=== PATIENT | male | born 2000 | race African-American/Black ===

== ENCOUNTER 2018-03-18 09:23 | Emergency (ER) | payer OTHER ==
[2018-03-18] MEDS: DEXAMETHASONE 4 MG TABLET PO (10:16)
== END 2018-03-18 10:22 | disposition home or self-care (01) ==
LOC: ER 09:23
DX: J02.9 Acute pharyngitis, unspecified (principal); J45.909 Unspecified asthma, uncomplicated
CPT/HCPCS: 99283; J8540

== ENCOUNTER 2018-05-01 11:11 | Emergency (ER) | payer OTHER | END 2018-05-01 12:10 | disposition home or self-care (01) | LOC: ER 11:11 | DX: J02.9 Acute pharyngitis, unspecified (principal); J45.909 Unspecified asthma, uncomplicated; Z88.8 Allergy status to other drugs, medicaments and biological substances | CPT/HCPCS: 99283 ==

== ENCOUNTER 2018-05-16 06:15 | Emergency (ER) | payer OTHER ==
[2018-05-16] MEDS: LIDO:MAALOX 1:1 20 ML SINGLE DOSE. PO (07:18)
[2018-05-16 07:19] LABS: ADD MAN DIFF? NO
[2018-05-16] MEDS: FAMOTIDINE 20 MG/2 ML VIAL IVP (07:19)
[2018-05-16 07:22] LABS: BASO % 0 % (0-3); EOS # 0.2 x10^3/uL (0.0-0.7); EOS % 2 % (0-3); HEMATOCRIT 49.7 % (39.0-53.0); HEMOGLOBIN 17.3 g/dL (13.0-17.5); LYMPH # 3.1 x10^3/uL (1.0-4.8); LYMPH % 29 % (24-48); MEAN CORPUSCULAR HEMOGLOBIN 33 pg (25-35); MEAN CORPUSCULAR HGB CONC 35 g/dL (31-37); MEAN CORPUSCULAR VOLUME 94 fL (79-100); MONO # 0.5 x10^3/uL (0.0-1.1); MONO % 5 % (0-9); NEUT # 6.8 x10^3uL (1.8-7.7); NEUT % 64 % (31-73); PLATELET COUNT 154 x10^3/uL (140-400); RED CELL DISTRIBUTION WIDTH 13.4 % (11.5-14.5); WHITE BLOOD COUNT 10.6 x10^3/uL (4.0-11.0)
[2018-05-16 07:39] LABS: ANION GAP 4 (6-14); BLOOD UREA NITROGEN 16 mg/dL (8-26); BUN/CREATININE RATIO 16 (6-20); CALCIUM 9.1 mg/dL (8.5-10.1); CARBON DIOXIDE 30 mmol/L (21-32); CHLORIDE 104 mmol/L (98-107); GFR 116.5; GLUCOSE 83 mg/dL (70-99); POTASSIUM 3.8 mmol/L (3.5-5.1); SODIUM 138 mmol/L (136-145)
[2018-05-16 07:45] LABS: ALBUMIN 3.9 g/dL (3.4-5.0); ALK PHOS 67 U/L (46-116); ALT (SGPT) 16 U/L (16-63); AST (SGOT) 22 U/L (15-37); LIPASE 109 U/L (73-393); TOTAL BILIRUBIN 0.3 mg/dL (0.2-1.0)
== END 2018-05-16 08:37 | disposition home or self-care (01) ==
LOC: ER 06:15
DX: R10.13 Epigastric pain (principal); R07.89 Other chest pain; Z88.1 Allergy status to other antibiotic agents
CPT/HCPCS: 36415; 71046; 80053; 83690; 85025; 93005; 96374; 99285-25; S0028

== ENCOUNTER 2018-09-23 12:31 | Emergency (ER) | payer SELFPAY ==
[~2018-09-23] VITALS: Ht 172.7 cm; Wt 63.5 kg
[~2018-09-23 12:31] MED LIST: AMOX1TAB61 PO; AZIT250T6 PO; CETI10TA22 PO; FAMO-63 PO; FLUT9.9S NS; IBUP-1060 PO; NAPR-683 PO; PRED50TA PO; PROAIR HFA8.5 GM INH
[2018-09-23 12:53] VITALS: BP 157/61
[2018-09-23] MEDS ORDERED: AZITHROMYCIN 250 MG TABLET. PO ONE (13:15)
[2018-09-23 13:30] LABS: BILIRUBIN,URINE NEGATIVE (NEG); CLARITY,URINE CLEAR; COLOR,URINE YELLOW; NITRITE,URINE NEGATIVE (NEG); PROTEIN,URINE NEGATIVE (NEG-TRACE)
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
[2018-09-23 13:36] LABS: BACTERIA,URINE 0 /HPF (0-FEW); RBC,URINE 0 /HPF (0-2); SQUAMOUS EPITHELIAL CELL,UR FEW /LPF; WBC,URINE 0 /HPF (0-4)
== END 2018-09-23 13:57 | disposition home or self-care (01) ==
LOC: ER 12:31
DX: A64 Unspecified sexually transmitted disease (principal); N36.9 Urethral disorder, unspecified; Z88.1 Allergy status to other antibiotic agents
CPT/HCPCS: 81001; 87491; 87591; 99283; Q0144

== ENCOUNTER 2018-10-26 08:52 | Emergency (ER) | payer SELFPAY ==
[~2018-10-26] VITALS: Ht 170.2 cm; Wt 59.0 kg
[~2018-10-26 08:52] MED LIST changes: +ALBU2.5V8 INH; -PROAIR HFA8.5 GM INH
[2018-10-26 09:09] VITALS: BP 123/73
[2018-10-26] MEDS ORDERED: PROPARACAINE/FLUORESCEIN 0.5 ML OPHTH DROPS. OD ONE (09:45)
[2018-10-26] MEDS ORDERED: TETRACAINE 0.5% OPHTH SOLUTION 4ML BOTTLE. OD ONE (09:45)
[2018-10-26] MEDS ORDERED: ERYT1OIN6 OD (11:02)
--- NOTE | 2018-10-26 11:02 | PHYS DOC ---
Past Medical History Past Medical History: No Pertinent History Additional Past Medical Histor: "asthma-like sx" seasonal allergies Past Surgical History: No Surgical History Alcohol Use: Rarely Drug Use: None Adult General Chief Complaint Chief Complaint: EYE PROBLEMS HPI HPI Patient is a 18 year old [f__sex] who presents with [] Review of Systems Review of Systems Constitutional: Denies fever or chills [] Eyes: Denies change in visual acuity, redness, or eye pain [] HENT: Denies nasal congestion or sore throat [] Respiratory: Denies cough or shortness of breath [] Cardiovascular: No additional information not addressed in HPI [] GI: Denies abdominal pain, nausea, vomiting, bloody stools or diarrhea [] : Denies dysuria or hematuria [] Musculoskeletal: Denies back pain or joint pain [] Integument: Denies rash or skin lesions [] Neurologic: Denies headache, focal weakness or sensory changes [] Endocrine: Denies polyuria or polydipsia [] All other systems were reviewed and found to be within normal limits, except as documented in this note. Current Medications Current Medications Current Medications Medications (Trade) Dose Ordered Sig/Estefania Start Time Stop Time Status Last Admin Dose Admin Proparacaine HCl/ Fluorescein Sodium (Flucaine Eye Drops) 1 drop 1X ONCE 10/26/18 09:45 10/26/18 09:48 DC 10/26/18 09:45 1 DROP Tetracaine HCl (Tetracaine) 1 drop 1X ONCE 10/26/18 09:45 10/26/18 09:48 DC 10/26/18 09:45 1 DROP Allergies Allergies Allergies Coded Allergies Type Severity Reaction Last Updated Verified ceftriaxone Allergy Mild rash 03/18/18 Yes Physical Exam Physical Exam Constitutional: Well developed, well nourished, no acute distress, non-toxic appearance. [] HENT: Normocephalic, atraumatic, bilateral external ears normal, oropharynx moist, no oral exudates, nose normal. [] Eyes: PERRLA, EOMI, conjunctiva normal, no discharge. [] Neck: Normal range of motion, no tenderness, supple, no stridor. [] Cardiovascular:Heart rate regular rhythm, no murmur [] Lungs & Thorax: Bilateral breath sounds clear to auscultation [] Abdomen: Bowel sounds normal, soft, no tenderness, no masses, no pulsatile masses. [] Skin: Warm, dry, no erythema, no rash. [] Back: No tenderness, no CVA tenderness. [] Extremities: No tenderness, no cyanosis, no clubbing, ROM intact, no edema. [] Neurologic: Alert and oriented X 3, normal motor function, normal sensory function, no focal deficits noted. [] Psychologic: Affect normal, judgement normal, mood normal. [] Current Patient Data Vital Signs Vital Signs Date Time Temp Pulse Resp B/P (MAP) Pulse Ox O2 Delivery O2 Flow Rate FiO2 10/26/18 09:09 98.8 79 18 123/73 (90) 97 Room Air 98.8 EKG EKG [] Radiology/Procedures Radiology/Procedures []Using tetracaine and fluroscein the patient's eye was examined under Wood's lamp and an area of uptake was not noted. Patient's ocular symptoms have stabilized while they have been evaluated in the department and are appropriate for outpatient work up. No evidence of ruptured globe, retinal detachment, acute angle closure glaucoma , or deep space infection. Course & Med Decision Making Course & Med Decision Making Pertinent Labs and Imaging studies reviewed. (See chart for details) [] Dragon Disclaimer Dragon Disclaimer This electronic medical record was generated, in whole or in part, using a voice recognition dictation system. Departure Departure Impression: Primary Impression: Inflammation of conjunctiva Additional Impression: Conjunctivitis Disposition: 01 HOME, SELF-CARE Condition: STABLE Referrals: Chelsey SONG MD (PCP) Patient Instructions: Conjunctivitis (Viral and Bacterial) Additional Instructions: Fill the prescription(s) and use as directed. Apply warm, moist washcloths to eyes needed for comfort. Recommend use of baby shampoo to wash eyelids. Follow- up with her primary care doctor in 1-2 days. Return to the emergency room if your symptoms worsen. Scripts Erythromycin Base (Erythromycin) 1 Gm Oint...g. 0.25 INCH OD QID for 5 Days, #1 TUBE 0 Refills Prov: HAVEN CHAPIN APRN 10/26/18 Problem Qualifiers Primary Impression: Inflammation of conjunctiva Conjunctivitis type: acute Acute conjunctivitis type: unspecified Laterality: right Qualified Codes: H10.31 - Unspecified acute conjunctivitis , right eye Additional Impression: Conjunctivitis Conjunctivitis type: acute Acute conjunctivitis type: unspecified Laterality: right Qualified Codes: H10.31 - Unspecified acute conjunctivitis , right eye HAVEN CHAPIN APRN Oct 26, 2018 11:02
== END 2018-10-26 11:09 | disposition home or self-care (01) ==
LOC: ER 08:52
DX: H10.31 Unspecified acute conjunctivitis, right eye (principal); Z88.1 Allergy status to other antibiotic agents
CPT/HCPCS: 99283

== ENCOUNTER 2020-02-24 00:36 | Emergency (ER) | payer OTHER ==
[~2020-02-24] VITALS: Ht 172.7 cm; Wt 63.5 kg
[~2020-02-24 00:36] MED LIST changes: -CETI10TA22 PO; +CETI10TA24 PO; +ERYT1OIN6 OD
[2020-02-24 01:01] VITALS: BP 129/86
[2020-02-24] MEDS ORDERED: silver sulfADIAZINE 1% CREAM 25GM TUBE. TP ONE (01:45)
[2020-02-24] MEDS ORDERED: SMZ/TMP 800/160MG TABLET. PO ONE (01:45)
[2020-02-24] MEDS ORDERED: HYDROcodone/APAP 7.5/325MG 1 TAB TABLET PO ONE (01:45)
[2020-02-24] MEDS ORDERED: HYDR-3164 PO (01:57)
[2020-02-24] MEDS ORDERED: SULF1TAB24 PO (01:57)
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
== END 2020-02-24 02:17 | disposition home or self-care (01) ==
LOC: ER 00:36
DX: T25.222A Burn of second degree of left foot, initial encounter (principal); L03.116 Cellulitis of left lower limb; J30.2 Other seasonal allergic rhinitis; F17.200 Nicotine dependence, unspecified, uncomplicated; Z88.6 Allergy status to analgesic agent; X12.XXXA Contact with other hot fluids, initial encounter; Y93.89 Activity, other specified; Y92.89 Other specified places as the place of occurrence of the external cause; Y99.8 Other external cause status
CPT/HCPCS: 99284